=== PATIENT | female | born 1955 | race Caucasian/White ===

== ENCOUNTER 2017-01-24 10:58 | Observation (INO) | payer OTHER ==
[2017-01-24] MEDS ORDERED: NS 1,000 ML IV ONE (11:08)
[2017-01-24] MEDS ORDERED: MIDAZOLAM 2 MG/2 ML VIAL IVP ONE (11:08)
--- NOTE | 2017-01-24 11:20 | CPEKG ---
Heart Rate: 73 RR Interval: 822 P-R Interval: 184 QRSD Interval: 74 QT Interval: 408 QTC Interval: 450 P [place]: 63 QRS [place]: 57 T Wave [place]: 55 EKG Severity - NORMAL ECG - EKG Impression: SINUS RHYTHM Electronically Signed By: Tai Berger 24-Jan-2017 11:57:17
[2017-01-24] MEDS ORDERED: ISOPROTERENOL HCL 0.2 MG/ML 5ML AMP ONE (11:28)
[2017-01-24] MEDS ORDERED: LIDOCAINE 1% 30 ML SDV ONE (11:28)
[2017-01-24] MEDS ORDERED: BUPIVACAINE 0.5% 30 ML SDV ONE (11:28)
[2017-01-24] MEDS ORDERED: HEPARIN 10,000 UNIT/10 ML MDV ONE (11:28)
[2017-01-24 11:46] LABS: INR 1.01 (0.83-1.16); PROTIME(PATIENT) 13.2 SEC (12.0-15.0)
[2017-01-24 11:47] LABS: APTT 28.6 SEC (23.0-38.0)
[2017-01-24] MEDS ORDERED: ROCURONIUM 50 MG/5 ML VIAL ONE ×2 (11:52→14:04)
[2017-01-24] MEDS ORDERED: DEXAMETHASONE 4 MG/ML VIAL ONE (11:52)
[2017-01-24] MEDS ORDERED: LIDOCAINE 2% 5 ML SDV ONE (11:53)
[2017-01-24] MEDS ORDERED: fentaNYL 100 MCG/2 ML INJ ONE ×3 (11:55→15:39)
[2017-01-24 12:02] LABS: % IMMATURE GRANULYOCYTES 0.5 % (0.0-1.1); ABSOLUTE IMMATURE GRANULOCYTES 0.02 10^3/uL (0.00-0.10); ADD DIFF? NO; ADD MORPH? NO; ADD SCAN? NO; ATYPICAL LYMPHOCYTE FLAG 30 (0-99); FRAGMENT RBC FLAG 0 (0-99); HEMATOCRIT 39.3 % (38.0-47.0); HEMOGLOBIN 13.5 g/dL (12.6-16.3); LEFT SHIFT FLG 0 (0-99); LIPEMIA HEMOLYSIS FLAG 90 (0-99); MEAN CELL HEMOGLOBIN 31.4 pg (27.9-34.1); MEAN CELL HEMOGLOBIN CONCENTR. 34.4 g/dL (32.4-36.7); MEAN CELL VOLUME 91.4 fL (81.5-99.8); PLATELET CLUMPS FLAG 20 (0-99); PLATELET COUNT 168 10^3/uL (150-400); RED CELL DISTRIBUTION WIDTH 13.2 % (11.5-15.2)
[2017-01-24 12:03] LABS: ANION GAP 12 mEq/L (8-16); CARBON DIOXIDE 20 mEq/l (22-31); CHLORIDE 107 mEq/L (97-110); CREATININE 0.6 mg/dL (0.6-1.0); GLOMERULAR FILTRATION RATE > 60; GLUCOSE 91 mg/dL (70-100); MAGNESIUM 1.9 mg/dL (1.6-2.3); POTASSIUM 5.2 mEq/L (3.5-5.2); SODIUM 139 mEq/L (134-144)
[2017-01-24] MEDS ORDERED: MIDAZOLAM 2 MG/2 ML VIAL ONE (12:16)
[2017-01-24] MEDS ORDERED: ONDANSETRON 4 MG/2 ML VIAL ONE (14:40)
[2017-01-24] MEDS ORDERED: SUGAMMADEX SODIUM 200 MG/2 ML VIAL IVP ONE (15:17)
[2017-01-24] MEDS ORDERED: ATROPINE SULFATE 1 MG/10 ML SYR ONE (16:03)
[2017-01-24] MEDS ORDERED: ACETAMINOPHEN 325 MG TAB PO PRN (16:12)
[2017-01-24] MEDS ORDERED: ONDANSETRON 4 MG/2 ML VIAL IVP PRN (16:12)
[2017-01-24] MEDS ORDERED: OXYCODONE/APAP 5/325 TAB PO PRN (16:12)
--- NOTE | 2017-01-24 16:12 | EPPROC ---
Electrophysiology Procedure Note: ELECTROPHYSIOLOGIC STUDY AND CATHETER MEDIATED ABLATION FOR SUBEUSTACHIAN ISTHMUS DEPENDENT COUNTERCLOCKWISE ATRIAL FLUTTER: INDICATION: Recurrent atrial flutter PROCEDURES PERFORMED: 19801-06 EP evaluation with RA/RV/LA pace/record, with arrhythmia induction 16138-57 EP evaluation with RA/RV pace record, insert/reposition catheter, with arrhythmia induction 07156 SVT ablation 18217 3D mapping Fluoroscopy Catheters & Anesthesia: The patient arrived in the Electrophysiology Laboratory in the fasting state. The right clavicular region, right groin, and left groin area were prepped and draped in the usual sterile manner. Anesthesiologist Dr. Essie Freeman administered general anesthesia. Appropriate non-invasive blood pressure, pulse oximetry and end-tidal CO2 monitoring was established. All catheters were placed percutaneously using the modified Seldinger technique , and advanced into position under fluoroscopic guidance. One #7 Mozambican deflectable octapolar electrode catheter was advanced to the His-bundle position via the left femoral vein. We attempted to put this catheter into the coronary sinus but CS access was difficult and therefore this catheter was placed via a SL2 sheath along the posterior septum. # 7 [place] Halo catheter was inserted through the left femoral vein and was placed at the tricuspid annulus. Heparin was administered to keep ACT > 200 seconds. Programmed stimulation was performed from the right atrium, coronary sinus ( left atrium) and right ventricle. Parahisian pacing demonstrated all retrograde conduction over the AV node. Antegrade FPERP 400 ms, antegrade SPERP 390 ms, On arrival to the Electrophysiology Laboratory the patient was in sinus rhythm. Atrial flutter has been seen previously. In preparation for ablation of typical atrial flutter, a high-resolution 3D (3 dimensional) Carto electroanatomical map of the sub-Eustachian isthmus and right atrium was obtained during pacing of the posterolateral coronary sinus. For ablation of typical atrial flutter, one Agilis sheath was placed in the right atrium. A #8 Mozamb[place] deflectable quadrapolar electrode catheter (2mm-5mm- 2mm spacing) with 3.5 mm irrigated tip electrode and location sensor for the Sitedesk mapping system was inserted in the long sheath and advanced to the right atrium. Radiofrequency applications were applied between the tricuspid annulus at 0630 oclock as seen in the THAI view and the inferior vena cava. This achieved conduction block across the isthmus. Ablation was difficult due to small isthmus and prominent Eustachian ridge. There was recurrence of conduction x 2 post ablation and further ablation was done. Bidirectional conduction block was maintained with septal to lateral conduction time of 150 ms. Following ablation of the atrial flutter, programmed atrial stimulation was performed in the baseline state and during infusion of isoproterenol 2 mcg/min. No atrial arrhythmias were inducible post ablation. Post ablation, a high-resolution electroanatomical map of the sub-Eustachian isthmus was obtained during pacing of the posterolateral coronary sinus. This confirmed conduction block across the sub-Eustachian isthmus. Bidirectional block was also confirmed by pacing. The catheters were removed. Long sheath was changed to short 10Fr sheath The patient was transferred to the cardiovascular holding area in stable condition. Vascular access sheaths were removed in the holding area. There were no apparent complications. CONCLUSIONS: 1. Cavotricuspid isthmus dependent counterclockwise atrial flutter. 2. Successful catheter mediated ablation of cavotricuspid isthmus achieving bi -directional conduction block across cavotricuspid isthmus. 3. No atrial arrhythmias inducible post ablation. 4. No apparent complications. Patient Problems: Problems Problem Status Onset Atrial flutter Acute Atrial flutter Acute
--- NOTE | 2017-01-24 16:38 | CPEKG ---
Heart Rate: 86 RR Interval: 698 P-R Interval: 184 QRSD Interval: 68 QT Interval: 396 QTC Interval: 474 P [place]: 71 QRS [place]: 57 T Wave [place]: 50 EKG Severity - NORMAL ECG - EKG Impression: SINUS RHYTHM Electronically Signed By: Jose Griggs 26-Jan-2017 09:02:46
[2017-01-24 17:16] LABS: ANION GAP 9 mEq/L (8-16); CALCIUM 8.4 mg/dL (8.5-10.4); CARBON DIOXIDE 21 mEq/l (22-31); CHLORIDE 113 mEq/L (97-110); CREATININE 0.6 mg/dL (0.6-1.0); GLOMERULAR FILTRATION RATE > 60; GLUCOSE 121 mg/dL (70-100); MAGNESIUM 1.7 mg/dL (1.6-2.3); POTASSIUM 4.2 mEq/L (3.5-5.2); SODIUM 143 mEq/L (134-144)
[2017-01-24] MEDS ORDERED: LATANOPROST 0.005% 2.5 ML OPHT DROPS EACHEYE SCH (21:00)
[2017-01-25 05:27] LABS: % IMMATURE GRANULYOCYTES 0.3 % (0.0-1.1); ABSOLUTE IMMATURE GRANULOCYTES 0.02 10^3/uL (0.00-0.10); ADD DIFF? NO; ADD MORPH? NO; ADD SCAN? NO; ATYPICAL LYMPHOCYTE FLAG 10 (0-99); FRAGMENT RBC FLAG 0 (0-99); HEMATOCRIT 36.6 % (38.0-47.0); HEMOGLOBIN 12.5 g/dL (12.6-16.3); LEFT SHIFT FLG 0 (0-99); LIPEMIA HEMOLYSIS FLAG 90 (0-99); MEAN CELL HEMOGLOBIN 32.6 pg (27.9-34.1); MEAN CELL HEMOGLOBIN CONCENTR. 34.2 g/dL (32.4-36.7); MEAN CELL VOLUME 95.3 fL (81.5-99.8); PLATELET CLUMPS FLAG 0 (0-99); PLATELET COUNT 185 10^3/uL (150-400); RED BLOOD CELL COUNT 3.84 10^6/uL (4.18-5.33); RED CELL DISTRIBUTION WIDTH 13.1 % (11.5-15.2)
[2017-01-25 05:29] VITALS: RESP 16
[2017-01-25 05:38] LABS: INR 1.05 (0.83-1.16); PROTIME(PATIENT) 13.6 SEC (12.0-15.0)
[2017-01-25 05:54] LABS: ANION GAP 7 mEq/L (8-16); CALCIUM 9.3 mg/dL (8.5-10.4); CARBON DIOXIDE 23 mEq/l (22-31); CHLORIDE 108 mEq/L (97-110); CREATININE 0.6 mg/dL (0.6-1.0); GLOMERULAR FILTRATION RATE > 60; GLUCOSE 85 mg/dL (70-100); POTASSIUM 4.6 mEq/L (3.5-5.2); SODIUM 138 mEq/L (134-144)
[2017-01-25 06:04] LABS: TROPONIN I 0.398 ng/mL (0-0.034)
[2017-01-25 06:38] LABS: CK-MB INTERPRETATION POSITIVE (NEGATIVE); CREATINE KINASE-MB FRACTION 3.79 ng/mL (0-3.19)
--- NOTE | 2017-01-25 08:46 | CPEKG ---
Heart Rate: 67 RR Interval: 896 P-R Interval: 192 QRSD Interval: 70 QT Interval: 396 QTC Interval: 418 P [place]: 79 QRS [place]: 64 T Wave [place]: 58 EKG Severity - NORMAL ECG - EKG Impression: SINUS RHYTHM Electronically Signed By: Jose Griggs 26-Jan-2017 09:02:55
[2017-01-25] MEDS ORDERED: ASPIRIN 81 MG CHEWABLE TAB PO SCH (09:00)
--- NOTE | 2017-01-25 09:15 | ECHO ---
[id number] + + [address] : : [place] [address] : : [phone] + + Adult Echocardiographic Report + -------+ :Name: RHETT STONE Date: 01/25/2017 07:46 AM : : Hospital Admission Number: [id number] Locati on: 218: :: 1955 Gender: Female Height: 67 in : :Age: 61 yrs Race: WH Weight: 136 lb : :Reason For Study: Eval LV Fx : : BSA: 1.7 meter s2 : :History: Post EP : + -------+ MMode/2D Measurements \T\ Calculations IVSd: 0.78 cm LVIDd: 3.7 cm FS: 41.3 % Ao root diam: 2.5 cm LVPWd: 0.87 cm LVIDs: 2.2 cm EDV(Teich): 59.1 ml ACS: 1.6 cm ESV(Teich): 16.0 ml EF(Teich): 73.0 % Normal Measurement Values: + + :LVIDd (3.5-5.7cm) IVSd (0.6-1.1cm) LVPWd (0.6-1.1cm) Aortic Root (2.0-3.7cm)Left Atrium (1.5-4.0cm): :LV Vol(d) (76-115ml) LV Vol(s) (29-48ml) Ejec Fraction (50-65%)PV Emir (0.6- 1.2m/s) TV Emir (0.4-1.0m/s) : :MV E Emir (0.8-1.0m/s)MV A Emir (0.3-1.0m/s)LVOT Emir (0.7-1.2m/s) Asc Ao Emir ( 0.9-1.8m/s) : + + Doppler Measurements \T\ Calculations MV E max emir: Ao V2 max: LV V1 max: PA V2 max: 75.5 cm/sec 109.9 cm/sec 80.0 cm/sec 55.7 cm/sec MV A max emir: Ao max P.8 mmHg LV V1 max PG: PA max P.8 cm/sec 2.6 mmHg 1.2 mmHg MV E/A: 1.4 Left Ventricle The left ventricle is normal in size. There is normal left ventricular wall thickness. The left ventricular ejection fraction is normal. Ejection Fraction = 72%. The left ventricular wall motion is normal. Right Ventricle The right ventricle is normal in size and function. Atria The left atrial size is normal. Right atrial size is normal. Mitral Valve The mitral valve is normal in structure and function. There is no evidence of mitral valve prolapse. There is no mitral valve stenosis. There is no mitral regurgitation noted. Tricuspid Valve The tricuspid valve is normal in structure and function. No tricuspid regurgitation. Aortic Valve The aortic valve is normal in structure and function. The aortic valve is trileaflet. The aortic valve opens well. There is no aortic stenosis. There is no aortic insufficiency. Pulmonic Valve The pulmonic valve is normal in structure and function. There is no pulmonic valvular regurgitation. Great Vessels The aortic root is normal size. Pericardium/Pleural There is a trivial RV apical effusion measuring .5cm. Conclusion A complete two-dimensional transthoracic echocardiogram was performed (2D, M-mode, Doppler and color flow Doppler). The left ventricular ejection fraction is normal. Ejection Fraction = 72%. The left ventricular wall motion is normal. The right ventricle is normal in size and function. The left atrial size is normal. Right atrial size is normal. The mitral valve is normal in structure and function. The tricuspid valve is normal in structure and function. The aortic valve is normal in structure and function. The aortic valve is trileaflet. The aortic valve opens well. The pulmonic valve is normal in structure and function. There is a trivial RV apical effusion measuring 0.5cm Final Reading Physician: Tai Berger MD electronically signed on 01/25/2017 09:14 AM Ordering Physician: Tai Berger Performed By: Sha Turner, CS
[2017-01-25 11:19] VITALS: BP 113/71; PULSE 54; TEMP 97.9; O2SAT 96
--- NOTE | 2017-01-25 19:13 | GDS ---
ADMISSION DIAGNOSIS: Paroxysmal atrial flutter with ventricular rate exceeding 200 BPM, with pre-sy ncopal events. DISCHARGE DIAGNOSES: 1. Atrial flutter. 2. Status post electrophysiology study with successful ablation of counter-clockwise atrial flutter . PROCEDURES DONE DURING HOSPITALIZATION: 1. Electrocardiogram. 2. Electrophysiology study. 3. Successful catheter-mediated ablation of cavo-tricuspid isthmus, achieving bidirectional conduct ion block across cavo-tricuspid isthmus, with no atrial arrhythmias induced post ablation. 4. Echocardiogram. BRIEF HISTORY: Please see H and P. the patient is a 61-year-old female, recently reporting palpita tions and near syncopal event. She was was undergoing a 30-day CardioNet in which our office had be en called, and which appeared the patient to be in an atrial flutter with ventricular rate at 220 BP M, with associated symptoms of near-syncope. She met with Dr. Berger. He evaluated her and felt that she would be a good candidate for ablation. Risks and benefits of the procedure were explained to h er and her , they verbalized understanding and wanting to proceed with procedure. HOSPITAL COURSE: Patient was admitted to the [facility] and prepped for procedure there. She was taken to the electrophysiology suite, where Dr. Berger performed an EP procedure on her, successfully identifyi ng a cavo-tricuspid isthmus-dependent counterclockwise atrial flutter. He was successful to ablate, and post ablation no atrial arrhythmias were induced and no complications. Patient ultimately was transferred to the [facility] and then to the PCU unit for overnight observation. There, she has remained in sinus rhythm with occasional premature atrial contraction. No other malignant arrhythmias noted. She denies any chest pain or pressure. She has been up walking the unit without any difficulties or symptoms of lightheadedness. PHYSICAL EXAMINATION: (Done today) GENERAL APPEARANCE: Medium build, well-groomed female. She is alert and oriented to pers on, place, time, and situation. Appears to be under no acute distress. CURRENT VITAL SIGNS: Blood pressure of 113/71, heart rate 54 and sinus sheryl on the monitor, respirations 16, saturating 96% o n room air. Temperature of 36.6 degrees Celsius. HEENT: Head is normocephalic. Lips and tongue a re pink and moist with no signs of cyanosis. Conjunctivae pink. NECK: Trachea is midline, +2 courtney tid pulses bilateral, no auscultated bruits, no jugular vein distention. RESPIRATORY: Lungs clear to auscultation. No rhonchi, rales or wheezes. No accessory muscle use. No intercostal muscle ret raction noted. CARDIAC: Regular rate, regular rhythm. S1, S2, no S3, S4, gallops, rubs, or murmur s noted. ABDOMEN: Soft, nontender. Bowel sounds x4 quadrants. No organomegaly. No palpable mass es. SKIN: [place], warm, and dry. No cyanosis. No clubbing. No peripheral edema. VASCULAR: +2 car otids bilaterally. +2 radials bilateral. +2 dorsal pedal and posterior tibial pulses bilateral. S KIN: [place], warm, and dry. No cyanosis. No clubbing. No peripheral edema. GROIN SITE: Catheter insertion site, bilateral groins, with no redness, swelling, drainage, ecchymo sis, or hematoma noted. No auscultated bruit noted over either site. NEURO: Cranial nerves 2-12 g rossly intact. LABORATORY DATA: Studies from today show WBC of 6.22, hemoglobin of 12.5, hematocrit of 36.6, plate let count of 185. INR of 1.05. Sodium 138, potassium 4.6, chloride 108, CO2 23, BUN 11, creatinine 0.6, glucose 85, calcium 9.4. CK was 33, CK-MB fraction was 3.79. CK-MB percentage was 11.5. Trop onin was 0.398 (note cardiac enzymes are expected to be elevated post ablation). STUDIES: Electrophysiology and ablation procedure as mentioned above. Morning electrocardiogram sh ows sinus rhythm, normal axis, no ST or T-wave abnormalities suggestive of ischemia. Echocardiogram done this morning shows LVEF of 72%, no wall motion abnormalities, no significant zelda vular heart disease, trivial RV apical effusion measuring at 0.5 cm. DISCHARGE DISPOSITION: Patient will be discharged home in stable condition. She is under activity restrictions of not lifting more than 10 pounds for the next 2 days and no strenuous activity for th e next 2 weeks. DISCHARGE MEDICATIONS: Please see discharge med reconciliation sheet: Note, the patient has been s tarted on aspirin at 81 mg p.o. daily. She is to continue taking this for the next 6 weeks. She richardson s been on estrogen and progesterone for menopause, and she has been asked to hold this for the next 6 weeks. DISCHARGE INSTRUCTIONS: Post electrophysiology/atrial flutter ablation discharge instructions went over with the patient and her , including monitoring for signs of infection, activity restric tions, bathing precautions, medication compliance, DVT precautions, and followup appointment. She d oes have a followup appointment with Dr. Celine astorga for February 22. At the time of discharge, patient and her , both verbalized understanding of all discharge instructions. They have been told t hat if any problems or concerns come up post discharge, they are to call our office immediately or r eturn to the hospital. TOTAL TIME SPENT ON DISCHARGE: Greater than 30 minutes. /[id number]/MODL
== END 2017-01-25 11:41 | disposition home or self-care (01) ==
LOC: FCATH 10:58 → F2W 16:08
PROVIDERS: ADMIT Internal Medicine Cardiovascular Disease; ATTEND Internal Medicine Cardiovascular Disease
DX: I48.92 Unspecified atrial flutter (principal); R55 Syncope and collapse
CPT/HCPCS: 93005; 93306; 93613; 93621; 93623; 93653; C1731; C1732; C1766; G0378; C1893; J0461; J1100; J1644; J2250; J2405; J3010